=== PATIENT | male | born 1960 | race Caucasian/White ===

== ENCOUNTER → 2016-07-09 | Outpatient (CLI) | payer OTHER ==
[~2016-07-09] MED LIST: ASPEC325 PO; CITA40TA4 PO; ELET40TA PO; GLIM4TAB2 PO; LISI-788 PO; LISI20TA3 PO; METF500T5 PO; MULT-513 PO; PROP80CA PO; SIMV20TA5 PO
[2016-07-09 09:41] LABS: HEMATOCRIT 42.8 % (42-52); MEAN CELL VOLUME 90.5 fL (80-100); MEAN CORPUSCULAR HEMOGLOBIN 33.8 pg (25-34); MEAN CORPUSCULAR HGB CONC 37.4 g/dl (32-36); MEAN PLATELET VOLUME 11.6 fL (7.4-10.4); PLATELET COUNT 134 K/uL (130-400); RED BLOOD COUNT 4.73 M/uL (4.7-6.1); WHITE BLOOD COUNT 5.67 K/uL (4.8-10.8)
[2016-07-09 09:52] LABS: ESTIMATED AVERAGE GLUCOSE 177 mg/dl; HA1C FLAG Normal (Normal)
[2016-07-09 09:58] LABS: ALT/SGPT 33 U/L (12-78); BLOOD UREA NITROGEN 12 mg/dl (7-18); BUN/CREATININE RATIO 13.5 (10-20); CARBON DIOXIDE 24 mmol/L (21-32); CHLORIDE 104 mmol/L (98-107); CHOLESTEROL 196 mg/dl (0-200); CREATININE 0.88 mg/dl (0.60-1.40); GLUCOSE 227 mg/dl (70-99); POTASSIUM 4.1 mmol/L (3.5-5.1); SODIUM 139 mmol/L (136-145); TRIGLYCERIDES 236 mg/dl (0-150); VERY LOW DENSITY LIPOPROT CALC 47 mg/dl
[2016-07-09 10:18] LABS: ALKALINE PHOSPHATASE 62 U/L (45-117); AST/SGOT 20 U/L (15-37); CHOLESTEROL/HDL RATIO 6.1; HDL CHOLESTEROL 32 mg/dl; LDL CHOLESTEROL CALCULATED 117 mg/dl
== END | disposition home or self-care (01) ==
LOC: C.LAB 07:50
PROVIDERS: ATTEND Internal Medicine Geriatric Medicine
DX: I10 Essential (primary) hypertension (principal); G47.30 Sleep apnea, unspecified; K76.0 Fatty (change of) liver, not elsewhere classified; E78.5 Hyperlipidemia, unspecified; G43.909 Migraine, unspecified, not intractable, without status migrainosus; Z72.0 Tobacco use; E11.9 Type 2 diabetes mellitus without complications

== ENCOUNTER → 2017-05-09 | Outpatient (CLI) | payer OTHER ==
[2017-05-09 10:16] LABS: HEMOGLOBIN A1C 7.4 % (4.5-5.6)
[2017-05-09 11:22] LABS: ALBUMIN 3.7 gm/dl (3.4-5.0); ALT/SGPT 38 U/L (12-78); AST/SGOT 20 U/L (15-37); BLOOD UREA NITROGEN 18 mg/dl (7-18); CALCIUM 9.1 mg/dl (8.5-10.1); CARBON DIOXIDE 25 mmol/L (21-32); CREATININE 0.95 mg/dl (0.60-1.40); GLUCOSE 185 mg/dl (70-99); POTASSIUM 3.9 mmol/L (3.5-5.1); SODIUM 135 mmol/L (136-145)
[2017-05-09 11:26] LABS: ALKALINE PHOSPHATASE 67 U/L (45-117); CHOLESTEROL 153 mg/dl (0-200); LDL CHOLESTEROL CALCULATED 80 mg/dl; TOTAL PROTEIN 7.3 gm/dl (6.4-8.2)
== END | disposition home or self-care (01) ==
LOC: C.LAB 07:40
PROVIDERS: ATTEND Internal Medicine Geriatric Medicine
DX: Z00.00 Encounter for general adult medical examination without abnormal findings (principal); K76.0 Fatty (change of) liver, not elsewhere classified; E11.9 Type 2 diabetes mellitus without complications; E78.5 Hyperlipidemia, unspecified; Z68.38 Body mass index [BMI] 38.0-38.9, adult; F32.9 Major depressive disorder, single episode, unspecified

== ENCOUNTER 2024-07-03 16:45 | Inpatient (IN) ==
--- NOTE | 2024-07-03 17:43 | XRay Report ---
EXAM: Radiograph of the Chest 1 View INDICATION: Stroke alert TECHNIQUE: Frontal view of the chest. COMPARISON: No relevant prior studies available. FINDINGS: Lungs and pleural spaces: Minimal linear scar atelectasis in the left lung base. No consolidation or pulmonary edema. No pleural effusion or pneumothorax. Heart: Shape and configuration within normal limits allowing for technique. Mediastinum: Normal contour. Bones/joints: Old left clavicle fracture. No acute osseous abnormality. Soft tissues: No abnormality noted. No radiopaque foreign body noted. Upper abdomen: No abnormality noted. IMPRESSION: No acute cardiopulmonary disease. ACT 112: N/A Electronically signed by Essence Osman 07-03-2024 5:43 PM
[2024-07-03 17:54] LABS: Hematocrit (blood only) 48.1 % (42.0-52.0); Hemoglobin 17.7 g/dl (14.0-18.0); Mean Corpuscular Hemoglobin 32.1 pg (25.0-34.0); Mean Corpuscular Hgb Conc 36.8 g/dL (32.0-36.0); Mean Corpuscular Volume 87.1 fL (80.0-100.0); Mean Platelet Volume 10.9 fL (9.4-12.4); Platelet Count 196 K/uL (130-400); RDW Coefficient of Variation 11.8 % (11.5-14.5); RDW Standard Deviation 37.3 fL (36.4-46.3); Red Blood Count 5.52 M/uL (4.70-6.10); White Blood Count 6.36 K/ul (4.8-10.8)
[2024-07-03 18:23] LABS: Albumin Level 4.4 gm/dl (3.4-5.0); Calcium 10.4 mg/dl (8.6-10.3); Magnesium 1.8 mg/dl (1.7-2.4); Potassium 3.9 mmol/L (3.5-5.1)
[2024-07-03 18:27] LABS: Albumin Globulin Ratio 1.3 (0.9-2); BUN Creatinine Ratio 16.1 (10-20); Creatinine Clr Calc Pharmacy 111.9 ml/min; Globulin 3.4 gm/dl (2.5-4.0); Total Protein 7.8 gm/dl (6.0-8.3)
[2024-07-03 18:31] LABS: INR 0.9 (0.9-1.1); Partial Thromboplastin Time 27 Seconds (21-31); Prothrombin Time 10.3 Seconds (9.0-12.0)
[2024-07-03] MEDS: OPTIRAY 320 125ml IV ONE (18:42)
--- NOTE | 2024-07-03 19:24 | CT Scan Report ---
HISTORY: Stroke TECHNIQUE: CT angiography of the head and the neck was performed. Coronal and sagittal reformats were created. IV CONTRAST: 100 mL of OMNIPAQUE 300 COMPARISON: MRI of the brain August 10, 2020 FINDINGS: CTA HEAD: Stenotic/occlusive disease: The right FILAMENT WELDER is not traced from in the P4 segment and is likely occluded distally Aneurysm: None Vascular malformation: None NONVASCULAR: Brain parenchyma: There is a new ill-defined transcortical hypodensity in the right occipital lobe since the previous MRI from August 10, 2020, which may represent a subacute infarction. Unchanged encephalomalacia and gliosis in the right cerebral hemisphere representing old infarct Chronic white matter ischemic changes. Extra-axial space: Unremarkable Ventricular system: Unremarkable Additional comments: None CTA NECK: Right carotid: No hemodynamically significant stenosis. Left carotid: No hemodynamically significant stenosis. Vertebrobasilar system: No hemodynamically significant stenosis. Aortic arch and subclavian arteries: No hemodynamically significant stenosis. Nonvascular structures: Enlarged thyroid with multiple subcentimeter nodules. Stenosis ranges are derived using NASCET criteria. IMPRESSION: New ill-defined transcortical hypodensity in the right occipital lobe since the previous MRI from August 10, 2020, which may represent a subacute infarction. No large vessel occlusion The right FILAMENT WELDER is not traced from in the P4 segment and is likely occluded distally Enlarged thyroid with multiple subcentimeter nodules. Recommend further evaluation with ultrasound when clinically able Notification to clinician of alert: [facility] was notified about above findings by phone on July 03, 2024 at 7:20 PM by Christian Navarro MD. Readback confirmation was obtained. Electronically signed by Christian Navarro 07-03-2024 7:24 PM
--- NOTE | 2024-07-03 19:24 | CT Scan Report ---
HISTORY: Stroke TECHNIQUE: CT angiography of the head and the neck was performed. Coronal and sagittal reformats were created. IV CONTRAST: 100 mL of OMNIPAQUE 300 COMPARISON: MRI of the brain August 10, 2020 FINDINGS: CTA HEAD: Stenotic/occlusive disease: The right MAINTAINER OPERATOR is not traced from in the P4 segment and is likely occluded distally Aneurysm: None Vascular malformation: None NONVASCULAR: Brain parenchyma: There is a new ill-defined transcortical hypodensity in the right occipital lobe since the previous MRI from August 10, 2020, which may represent a subacute infarction. Unchanged encephalomalacia and gliosis in the right cerebral hemisphere representing old infarct Chronic white matter ischemic changes. Extra-axial space: Unremarkable Ventricular system: Unremarkable Additional comments: None CTA NECK: Right carotid: No hemodynamically significant stenosis. Left carotid: No hemodynamically significant stenosis. Vertebrobasilar system: No hemodynamically significant stenosis. Aortic arch and subclavian arteries: No hemodynamically significant stenosis. Nonvascular structures: Enlarged thyroid with multiple subcentimeter nodules. Stenosis ranges are derived using NASCET criteria. IMPRESSION: New ill-defined transcortical hypodensity in the right occipital lobe since the previous MRI from August 10, 2020, which may represent a subacute infarction. No large vessel occlusion The right MAINTAINER OPERATOR is not traced from in the P4 segment and is likely occluded distally Enlarged thyroid with multiple subcentimeter nodules. Recommend further evaluation with ultrasound when clinically able Notification to clinician of alert: [facility] was notified about above findings by phone on July 03, 2024 at 7:20 PM by Christian Navarro MD. Readback confirmation was obtained. Electronically signed by Christian Navarro 07-03-2024 7:24 PM
--- NOTE | 2024-07-03 19:45 | History & Physical Report ---
Date of Service July 03, 2024 Assessment & Plan (1) CVA (cerebral vascular accident): (2) Visual disturbance: (3) T2DM (type 2 diabetes mellitus): (4) Thyroid nodule: Plan Patient is a 64-year-old male with a past medical history of type II DM on insulin, hyperlipidemia, hypertension, MDD, history of cerebellar stroke at age 17. He presented to the ED after referral by PCP for left eye visual disturbance. The symptoms have been going on since Saturday so stroke alert was not called. He is being admitted for stroke workup after right occipital lobe subacute infarct found on head and neck CTA. #subacute right occipital lobe infarct/visual changes Patient presents with left eye auras/rings, denies diplopia or blurry vision Head/Neck CTA Showed new ill-defined transcortical hypodensity in right occipital lobe (subacute infarct), right HOME HEALTH OCCUPATIONAL THERAPIST likely occluded distally No echo on file no tele stroke recommendations as no stroke alert called due to sx for 5 days stroke without TNK order set - active ROM, Q4H neuro checks, pt/ot evals, speech eval continue ASA 81mg - additional 243 mg ordered on admission start Atorvastatin 40 mg daily - adjust prn with lipid panel ordered - recheck LFTs in 2 weeks - lipid panel 06/04/24 - triglyceride 272, total c 226, ldl 139, hdl 33 - defer repeat lipid panel Allow for permissive hypertension with goal parameters 220/110 - hold amlodipine, lisinopril, and HCTZ Telemetry monitoring MRI and echo with bubble study ordered A1C with AM labs - recent 10.1 retinal scanner and visual acuity assessment ordered #T2DM hold Trulicity continue home glargine 25 U HS Loose SSI, CF 30, defer carb ratio A1C with AM labs - 10.1 on 06/04/24 #thyroid nodules incidental finding on neck CTA - Enlarged thyroid with multiple subcentimeter nodules TSH ordered can consider thyroid antibody panel after TSH resulted follow-up with PCP and consider ultrasound in outpatient setting Chronic stable diagnoses: HTN - hold amlodipine, HCTZ, lisinopril with permissive HTN GERD - continue famotidine BPH - continue tamsulosin MDD - continue amitriptyline TARAS - does not use home CPAP allergies - saline spray prn VTE ppx: SCDs, defer chemical ppx with CVA above Diet: t2dm, passed dysphagia screen Dispo: med/tele Admission and Anticipated Discharge Date Admission Date: 07/03/24 History of Present Illness Chief Complaint: visual disturbance Primary Care Provider: Jose Maria Vanessa DO Patient is a 64-year-old male with a past medical history of type II DM on insulin, hyperlipidemia, hypertension, MDD, history of cerebellar stroke at age 17. He presented to the ED after referral by PCP for left eye visual disturbance. The symptoms have been going on since Saturday so stroke alert was not called. He is being admitted for stroke workup after right occipital lobe subacute infarct found on head and neck CTA. Patient seen at bedside with his present. He stated on Saturday he developed what he thought was a migraine and left eye visual changes. He stated the visual changes are like his auras that he typically gets with migraines, he is seeing rings but states it is difficult to explain. The vision changes have been persistent since Saturday which is why he presented to the ED. He does have a history of migraines with visual auras however typically do not last this long. He stated his bone around his left eye also has hurt since Saturday and appears puffy to him however he gets chronic sinusitis and has had rhinorrhea. The puffiness has since resolved. He denies blurry vision or diplopia. He denies any other strokelike symptoms, no dizziness, lightheadedness, facial droop, slurred speech, extremity numbness or tingling, facial numbness or tingling. He stated he does have a history of a stroke around age 17, he denies any family history of strokes however stated he does have strong family history of heart disease. 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 Patient denies dizziness, lightheadedness, sore throat, cough, dyspnea, chest pain, numbness, tingling, ambulatory dysfunction. He stated he typically has dry sinuses and uses saline spray at home, ordered on admission. He stated he does chew tobacco, he denies any smoking history however his smokes so he has exposure to secondhand smoke. he denies any chronic alcohol use. He stated he does have a CPAP for sleep apnea however has not used it in many months. He got his morning medications today however did not get his evening medications. He wishes to be full code. Allergies Allergy/AdvReac Type Severity Reaction Status Date / Time metformin AdvReac Intermediate Diarrhea Verified 07/03/24 15:15 oxytetracycline AdvReac Unknown unknown as Verified 07/03/24 15:15 [From Terramycin] a child Home Medications Medication Instructions Recorded Confirmed Type multivitamin (Multiple Vitamins 1 tab PO QAM 01/28/19 07/03/24 History tablet) CPAP Machine #1 ea 05/04/20 07/03/24 Rx magnesium citrate 100 mg tablet 200 mg PO DAILY PRN Constipation 08/01/20 07/03/24 History aspirin 81 mg tablet,delayed 81 mg PO QAM 07/03/21 07/03/24 History release blood sugar diagnostic (OneTouch #100 ea 02/21/23 07/03/24 Rx Verio test strips) amitriptyline 25 mg tablet 25 mg PO .qhs 01/09/24 07/03/24 History dulaglutide 4.5 mg/0.5 mL 4.5 mg (0.5 mL) subcut .once 01/09/24 07/03/24 Rx subcutaneous pen injector weekly #2 mL tamsulosin 0.4 mg capsule 0.8 mg (2 x 0.4 mg) PO HS #180 caps 03/25/24 07/03/24 Rx lancets (Accu-Chek Softclix #100 ea 04/24/24 07/03/24 Rx Lancets) famotidine 20 mg tablet 20 mg PO DAILY 06/04/24 07/03/24 History pen needle, diabetic 31 gauge x #100 ea 06/04/24 07/03/24 Rx 3/16" (Comfort EZ Pen [place]) amlodipine 10 mg tablet 5 mg (1/2 x 10 mg) PO QAM #90 tabs 07/04/24 07/03/24 Rx atorvastatin 40 mg tablet 40 mg PO QAM #30 tabs 07/04/24 Rx clopidogrel 75 mg tablet 75 mg PO QAM #30 tabs 07/04/24 Rx insulin glargine 100 unit/mL (3 30 unit (0.3 mL) subcut HS #15 mL 07/04/24 07/03/24 Rx mL) subcutaneous pen (Lantus Solostar U-100 Insulin) lisinopril 40 mg tablet 20 mg (1/2 x 40 mg) PO QAM #90 tabs 07/04/24 07/03/24 Rx Past Med/Surg History Problem List (Updated 07/03/24 @ 20:50 by Susanne Duarte PA-C) Thyroid nodule T2DM (type 2 diabetes mellitus) Visual disturbance CVA (cerebral vascular accident) Obesity (BMI 30-39.9) MDD (major depressive disorder), recurrent episode, moderate Diabetic neuropathy associated with type 2 diabetes mellitus HTN (hypertension) (Chronic) DM (diabetes mellitus), secondary uncontrolled penitentiary (current) use of insulin (Acute) Dyslipidemia (Acute) Severe obstructive sleep apnea (Acute) cpap Nocturnal hypoxemia Hepatic steatosis (Acute) US not completed by Patient Memory deficit Migraine with aura Urinary frequency (Acute) Renal lesion (Acute) ct 2014, F/U recommneded? Nocturia (Acute) Medical History (Updated 07/03/24 @ 20:50 by Susanne Duarte PA-C) Diabetes type 2, controlled Stroke with migraine ~1976. presented as a severe migraine treated with lumbar puncture. found incidentally during a brain ct for follow up on consistent migraines. follows with [facility] neuro. Asthma as a child History of COVID-19 05/27/2020 tested at [facility], flu like symptoms. no hospitalization. Chronic sinusitis Depression Smokeless tobacco use Migraine Surgical History H/O umbilical hernia repair (07/06/21) Open Repair Incarcerated Umbilical Hernia with Ventralex Mesh - Tin Ding MD, FACS 07/06/2021 History of carpal tunnel surgery right History of sinus surgery History of colonoscopy Family History Brother Diabetes Esophageal cancer Father Esophageal cancer Grandfather (Paternal) Prostate cancer Mother Diabetes Heart disease Other Coronary heart disease Hypertension Denies family history of Ovarian cancer Myocardial infarction Breast cancer Lung cancer Colorectal cancer Stroke Social History Smoking Status: Never smoker Tobacco Type: Smokeless Tobacco (Dip or Chew) Second Hand Exposure: Yes; Do You Dip or Chew Tobacco: Yes; Hx Alcohol Use: No Hx Substance Use: No Preferred Language: Ghanaian Communication Ability: Effective Visual Impairment: Limited Hearing Ability: Normal Machine Cloth Examiner Required: No Beliefs That Will Affect Care: None marital status: Current Living Situation: Family current occupational status: employed current occupation: [employer] How many Children do You have: 2 Feels Safe at Home: Yes Childhood Exposure to Second-Hand Smoke: Yes Diet: diabetic caffeine: Yes Dental Care, Regularly: No Physical Activity Frequency: 1-2 Times per Week Seatbelt Use: always Sunscreen Use: No Assistive Devices: Glasses Review of Systems Review of Systems: see HPI Physical Exam Physical Exam: The patient is awake, alert and oriented 3, well developed and well nourished, normocephalic and atraumatic, in no acute distress. Non-toxic appearing. HEENT- EOMI, mucous membranes moist. Hearing grossly intact. Heart-normal S1 and S2. No murmurs, rubs or gallops. Lungs-clear bilaterally, no respiratory distress, no accessory muscle use. Abdomen-normal bowel sounds and soft. No ascites noted. Non-tender. Extremities- no clubbing, cyanosis, or edema. Rheumatologic-normal range of motion. Psychiatric-normal affect. Eyes: PERRL, conjunctivae normal, anicteric sclerae Musculoskeletal: no cyanosis or clubbing, extremities motor strength 5/5 Neurologic: PERRL, EOMI, accommodation nl, no face palsy, no dysarthria CN's II-XI intact bilaterally; no focal motor deficits and not confused Coordination: normal avvbfo-af-sode test Results & Data Results & Data Vital Signs (Past 12 Hours) Vital Signs Temp Pulse Pulse Resp BP BP Pulse Ox 07/03/24 19:27 91 H 16 163/109 H 94 07/03/24 18:20 93 H 07/03/24 17:57 96 07/03/24 17:56 36.8 C 93 H 18 160/89 H 99 07/03/24 16:49 36.7 C 95 H 18 178/95 H 94 O2 Del Method 07/03/24 19:27 Room Air 07/03/24 18:20 07/03/24 17:57 Room Air 07/03/24 17:56 Room Air 07/03/24 16:49 Room Air Laboratory Results Reviewed CBC, PT/INR, CMP, mag Diagnostic Findings reviewed cxr, head cta, neck cta Medications Administered ed - none admission - 243 mg ASA ECG Additional Comments: NSR rate 99 qtc 462 Code Status & VTE Plan Code Status full code VTE Prophylaxis Plan VTE Prophylaxis will be ordered: Yes Supervising Physician Co-Signing Physician Notes Attending addendum: I have physically seen this patient, have supervised the AUDRA's activities, and agree with the H&P unless as otherwise noted. Assessment and Plan: The patient is a 64-year-old male with past medical history including of his mellitus type II on insulin, hyperlipidemia, hypertension, MDD, and history of cerebellar stroke in age 17. He presents to the ED after referral by PCP for left eye visual disturbance. Symptomatology has been going on since Saturday, 4 days ago. Workup in the emergency department included a CT scan of head which showed a right occipital lobe subacute infarct. CTA head and neck showed a right HOME HEALTH OCCUPATIONAL THERAPIST likely noted distally. There were also multiple thyroid subcentimeter nodules. [facility]. #Subacute right occipital lobe infarct/visual changes- Patient presented with left eye auras/rings, denying diplopia or blurry vision CTA head and neck showed new ill-defined transcortical hypodensity in the right occipital lobe suggestive of subacute infarct, right HOME HEALTH OCCUPATIONAL THERAPIST likely occluded distally. Stroke without TNK order set Consult PT/OT/speech/neurology Patient takes aspirin 81 mg daily, recommend an additional 243 mg now, and then continue 81 mg daily Starting atorvastatin 40 mg daily Check a fasting blood panel and hemoglobin A1c Order MRI of brain without contrast Order complete echocardiogram with bubble study Check a fasting lipid panel and hemoglobin A1c Diabetes mellitus-holding Trulicity Continue glargine 25 units subcu at bedtime Patient Accu-Cheks with NovoLog SSI as noted Multiple thyroid nodules- Noted to 7 cm Check a TSH with reflex T4 Would likely benefit from a thyroid ultrasound in the outpatient setting Consideration for thyroid antibody testing as well Remaining orders and notations as noted PG Care Time/CCT Total # of Minutes Spent Total Time Spent with Patient: Total time spent is greater than 50% in coordination of care (as documented) at patient's floor/unit and/or counseling patient: Coding Level of Care Code 63673 INT INP/OBS CARE 3/75MIN Diagnoses CVA (cerebral vascular accident) I63.9 Visual disturbance H53.9 T2DM (type 2 diabetes mellitus) E11.9 Thyroid nodule E04.1
[2024-07-03] MEDS: ASPIRIN 81 MG ECTAB PO STA (20:58)
[2024-07-03 21:53] LABS: Thyroid Stimulating Hormone 2.022 uIu/ml (0.300-4.500)
[2024-07-03] MEDS ORDERED: GLUCOSE 10 TAB/TUBE PO PRN (22:30)
[2024-07-03] MEDS ORDERED: ACETAMINOPHEN 325 MG TAB PO PRN (22:30)
[2024-07-03] MEDS ORDERED: DEXTROSE 50% 50 ML SYRINGE IV PRN (22:30)
[2024-07-03] MEDS ORDERED: GLUCOSE 40% GEL 15 GM TUBE PO PRN (22:30)
[2024-07-03] MEDS ORDERED: GLUCAGON FOR INJ 1 MG VIAL SQ PRN (22:30)
[2024-07-03] MEDS ORDERED: CARBOHYDRATES FOR HYPOGLYCEMIA PO PRN (22:30)
[2024-07-03] MEDS ORDERED: PHARMACIST DISCHARGE MED REC CONSULT PRN (22:30)
[2024-07-03] MEDS ORDERED: ONDANSETRON INJ 2 MG/ML 2 ML VIAL IV PRN (22:30)
[2024-07-03] MEDS ORDERED: SODIUM CHLORIDE 0.65% NA SOLN 45 ML (OCEAN) PRN (22:30)
[2024-07-03] MEDS ORDERED: DOCUSATE SODIUM 100 MG CAP PO PRN (22:30)
--- NOTE | 2024-07-03 22:40 | Magnetic Resonance Report ---
Exam(s): MRI HEAD Without Contrast EXAM: MR Head Without Intravenous Contrast CLINICAL HISTORY: Reason for exam: right occipital lobe infarct. TECHNIQUE: Magnetic resonance images of the head/brain without intravenous contrast in multiple planes. COMPARISON: MRI 08/10/2020. CTA head 07/03/2024 FINDINGS: Brain: Acute infarct involving the right occipital lobe. Chronic infarcts of the right cerebellum. No intracranial hemorrhage. No mass- effect or cerebral edema. Ventricles: Unremarkable. No ventriculomegaly. Bones/joints: Unremarkable. No acute fracture. Sinuses: Unremarkable as visualized. No acute sinusitis. Mastoid air cells: Unremarkable as visualized. No mastoid effusion. Orbits: Unremarkable as visualized. IMPRESSION: Acute infarct involving the right occipital lobe. No hemorrhagic conversion. Electronically signed by: Rohith South MD 07/03/24 22:39 PM
[2024-07-03] MEDS: TAMSULOSIN HCL 0.4 MG CAP PO SCH (23:12)
[2024-07-03] MEDS: AMITRIPTYLINE HCL 25 MG TAB PO SCH (23:12)
[2024-07-03] MEDS: LANTUS PER UNIT CHARGE SQ SCH (23:13)
[2024-07-03] MEDS: INSULIN ASPART PER UNIT CHARGE SC SCH (23:13)
--- NOTE | 2024-07-04 02:03 | Emergency Department Note ---
ED Provider Note CHIEF COMPLAINT: Visual changes HISTORY OF PRESENT ILLNESS: This 64-year-old male patient past medical history of type 2 diabetes, CVA, depression, diabetic neuropathy, hypertension obstructive sleep apnea, hyperlipidemia, migraine headaches and memory deficits presents to the emergency department with complaints of visual changes in the left eye over the last 4 days. Patient states symptoms began with some pain below the right eye, then shortly thereafter patient recognized left eye "shimmering. He does believe his vision has improved although it is not cleared totally. Patient does have a remote history of stroke in the left cerebellum. He denies taking any blood thinners. He denies any injury to the head. REVIEW OF SYSTEMS: A review of systems was performed with positives and pertinent negatives listed in the history of present illness. 10 systems were reviewed and are otherwise negative. ALLERGIES: see below MEDICATIONS: see below PMH: see below SOCIAL HISTORY: see below DDx: CVA, intracranial hemorrhage, intracranial mass, seizure, retinal detachment, glaucoma, central retinal artery occlusion among others. PHYSICAL EXAM: Vital signs reviewed. General: Well-appearing 64-year-old male, in no significant distress. HEENT: No scleral icterus, PERRLA, neck supple. Moist mucous membranes Cardiovascular: Regular rate and rhythm, no extra sounds. Pulmonary: Clear to auscultation bilaterally, normal work of breathing. Abdomen: Soft, nontender, nondistended, positive bowel sounds. Musculoskeletal: Atraumatic, no peripheral edema. Neurologic: Patient awake alert and oriented x 3, speech is clear. Intact [id number], negative pronator drift, minimal horizontal nystagmus. Equal strength in all 4 extremities. Skin: Warm, dry, no rash EMERGENCY DEPARTMENT COURSE/MDM: [] MONITORING: An order for cardiac monitoring was placed and the patient is noted to be in a [] at [] beats per minute. RADIOLOGY: Head CT/CTA, neck CTA: IMPRESSION: New ill-defined transcortical hypodensity in the right occipital lobe since the previous MRI from August 10, 2020, which may represent a subacute infarction. No large vessel occlusion The right CAPABILITY LEAD is not traced from in the P4 segment and is likely occluded distally Enlarged thyroid with multiple subcentimeter nodules. Recommend further evaluation with ultrasound when clinically able Chest x-ray to my interpretation reveals no evidence of focal lung consolidation or failure. EKG: Normal sinus rhythm at 99 bpm. Left axis deviation, previous inferior infarct. QTc of 462. No PVC, no PAC. DISPOSITION: Admission Past Med/Surg History Problem List (Updated 07/03/24 @ 20:50 by Susanne Duarte PA-C) Thyroid nodule T2DM (type 2 diabetes mellitus) Visual disturbance CVA (cerebral vascular accident) Obesity (BMI 30-39.9) MDD (major depressive disorder), recurrent episode, moderate Diabetic neuropathy associated with type 2 diabetes mellitus HTN (hypertension) (Chronic) DM (diabetes mellitus), secondary uncontrolled halfway (current) use of insulin (Acute) Dyslipidemia (Acute) Severe obstructive sleep apnea (Acute) cpap Nocturnal hypoxemia Hepatic steatosis (Acute) US not completed by Patient Memory deficit Migraine with aura Urinary frequency (Acute) Renal lesion (Acute) ct 2014, F/U recommneded? Nocturia (Acute) Medical History (Updated 07/03/24 @ 20:50 by Susanne Duarte PA-C) Diabetes type 2, controlled Stroke with migraine ~1976. presented as a severe migraine treated with lumbar puncture. found incidentally during a brain ct for follow up on consistent migraines. follows with [place] neuro. Asthma as a child History of COVID-19 05/27/2020 tested at [place], flu like symptoms. no hospitalization. Chronic sinusitis Depression Smokeless tobacco use Migraine Surgical History H/O umbilical hernia repair (07/06/21) Open Repair Incarcerated Umbilical Hernia with Ventralex Mesh - Tin Ding MD, FACS 07/06/2021 History of carpal tunnel surgery right History of sinus surgery History of colonoscopy Family History Brother Diabetes Esophageal cancer Father Esophageal cancer Grandfather (Paternal) Prostate cancer Mother Diabetes Heart disease Other Coronary heart disease Hypertension Denies family history of Ovarian cancer Myocardial infarction Breast cancer Lung cancer Colorectal cancer Stroke Social History Smoking Status: Never smoker Tobacco Type: Smokeless Tobacco (Dip or Chew) Second Hand Exposure: Yes; Do You Dip or Chew Tobacco: Yes; Tobacco Cessation Education Requested by Patient: No Hx Alcohol Use: No Hx Substance Use: No Preferred Language: Persian Communication Ability: Effective Visual Impairment: Limited Hearing Ability: Normal Communications Superintendent Required: No Beliefs That Will Affect Care: None marital status: Current Living Situation: Family current occupational status: employed 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 How many Children do You have: 2 Other Information That Helps Us Care for You: No Feels Safe at Home: Yes Safety Concerns: Feels Safe At This Time Childhood Exposure to Second-Hand Smoke: Yes Diet: diabetic caffeine: Yes Dental Care, Regularly: No Physical Activity Frequency: 1-2 Times per Week Seatbelt Use: always Sunscreen Use: No Assistive Devices: Glasses Allergies Allergies Allergy/AdvReac Type Severity Reaction Status Date / Time metformin AdvReac Intermediate Diarrhea Verified 07/03/24 15:15 oxytetracycline AdvReac Unknown unknown as Verified 07/03/24 15:15 [From Terramycin] a child Home Meds Home Medications Medication Instructions Recorded Confirmed multivitamin (Multiple Vitamins 1 tab PO QAM 01/28/19 07/03/24 tablet) magnesium citrate 100 mg tablet 200 mg PO DAILY PRN Constipation 08/01/20 07/03/24 aspirin 81 mg tablet,delayed 81 mg PO QAM 07/03/21 07/03/24 release amitriptyline 25 mg tablet 25 mg PO .qhs 01/09/24 07/03/24 famotidine 20 mg tablet 20 mg PO DAILY 06/04/24 07/03/24 Previous Rx's Medication Instructions Recorded CPAP Machine #1 ea 05/04/20 blood sugar diagnostic (OneTouch #100 ea 02/21/23 Verio test strips) lisinopril 40 mg tablet 40 mg PO QAM #90 tabs 08/21/23 amlodipine 10 mg tablet 10 mg PO QAM #90 tabs 10/10/23 dulaglutide 4.5 mg/0.5 mL 4.5 mg (0.5 mL) subcut .once 01/09/24 subcutaneous pen injector weekly #2 mL tamsulosin 0.4 mg capsule 0.8 mg (2 x 0.4 mg) PO HS #180 caps 03/25/24 lancets (Accu-Chek Softclix #100 ea 04/24/24 Lancets) hydrochlorothiazide 12.5 mg tablet 12.5 mg PO DAILY #90 tabs 06/04/24 pen needle, diabetic 31 gauge x #100 ea 06/04/24/16" (Comfort EZ Pen [place]) insulin glargine 100 unit/mL (3 25 unit (0.25 mL) subcut HS #15 mL 07/01/24 mL) subcutaneous pen (Lantus Solostar U-100 Insulin) Results & Data (ED) Vital Signs Vital Signs - 24 hr 07/03/24 16:49 07/03/24 17:56 07/03/24 17:57 Temperature 36.7 C 36.8 C Temperature Source Temporal Artery Scan Oral Pulse Rate 95 H Pulse Rate [Apical] 93 H Pulse Rhythm [Apical] Regular Pulse Strength [Apical] Normal Respiratory Rate 18 18 Respiratory Effort / Characteristics Non-Labored Spontaneous Non-Labored Spontaneous Respiratory Depth Normal Normal Respiratory Pattern Regular Regular Blood Pressure 178/95 H Blood Pressure [Left Arm] 160/89 H Blood Pressure Mean 122 Blood Pressure Mean [Left Arm] 112 Pulse Oximetry 94 99 96 Oxygen Delivery Method Room Air Room Air Room Air Sepsis Recent Fever Within 48 Hours No Sepsis New/Unexplained Change in Mental Status No Sepsis Action Taken by Nursing No Action Required 07/03/24 18:20 07/03/24 19:27 Temperature Temperature Source Pulse Rate 93 H Pulse Rate [Apical] 91 H Pulse Rhythm [Apical] Regular Pulse Strength [Apical] Normal Respiratory Rate 16 Respiratory Effort / Characteristics Non-Labored Spontaneous Respiratory Depth Normal Respiratory Pattern Blood Pressure Blood Pressure [Left Arm] 163/109 H Blood Pressure Mean Blood Pressure Mean [Left Arm] 127 Pulse Oximetry 94 Oxygen Delivery Method Room Air Sepsis Recent Fever Within 48 Hours Sepsis New/Unexplained Change in Mental Status Sepsis Action Taken by Retirement Medications Current Medication List: was personally reviewed by me Laboratory Data Attestation: I reviewed the patient's lab results. 07/03/24 17:38 07/03/24 17:38 Lab Results 07/03/24 Range/Units 17:38 WBC 6.36 (4.8-10.8) K/ul RBC 5.52 (4.70-6.10) M/uL Hgb 17.7 (14.0-18.0) g/dl Hct 48.1 (42.0-52.0) % MCV 87.1 (80.0-100.0) fL MCH 32.1 (25.0-34.0) pg MCHC 36.8 H (32.0-36.0) g/dL RDW Std Deviation 37.3 (36.4-46.3) fL RDW Coeff of Lilly 11.8 (11.5-14.5) % Plt Count 196 (130-400) K/uL MPV 10.9 (9.4-12.4) fL PT 10.3 (9.0-12.0) Seconds INR 0.9 (0.9-1.1) APTT 27 (21-31) Seconds PTT Ratio 1.0 Sodium 137 (136-145) mmol/L Potassium 3.9 (3.5-5.1) mmol/L Chloride 99 (98-107) mmol/L Carbon Dioxide 28 (21-32) mmol/L Anion Gap 10 (3-11) BUN 15 (6-23) mg/dl Creatinine 0.93 (0.6-1.4) mg/dl Est Cr Clr Drug Dosing 111.9 ml/min eGFR 91.69 BUN/Creatinine Ratio 16.1 (10-20) Glucose 204 H (70-99(Fasting)) mg/dl Calcium 10.4 H (8.6-10.3) mg/dl Magnesium 1.8 (1.7-2.4) mg/dl Total Bilirubin 1.0 (0.2-1.0) mg/dl AST 21 (13-39) U/L ALT 24 (7-52) U/L Alkaline Phosphatase 71 (34-104) U/L Total Protein 7.8 (6.0-8.3) gm/dl Albumin 4.4 (3.4-5.0) gm/dl Globulin 3.4 (2.5-4.0) gm/dl Albumin/Globulin Ratio 1.3 (0.9-2) TSH 2.022 (0.300-4.500) uIu/ml Administered Medications Amitriptyline HCl (Amitriptyline Hcl 25 Mg Tab) 25 mg PO HS KAYLA Stop: 08/02/24 22:29 Last Admin: 07/03/24 23:12 Dose: 25 mg Documented By: MIKA Insulin Aspart (Insulin Aspart Per Unit Charge) 0 units SC ACHS KAYLA Stop: 08/02/24 22:29 Last Admin: 07/03/24 23:13 Dose: 1 units Documented By: MIKA Co-signed By: GERA Insulin Glargine (Lantus Per Unit Charge) 25 units SQ HS KAYLA Stop: 08/02/24 22:29 Last Admin: 07/03/24 23:13 Dose: 25 units Documented By: MIKA Co-signed By: GERA Tamsulosin HCl (Tamsulosin Hcl 0.4 Mg Cap) 0.8 mg PO HS [facility] Stop: 08/02/24 22:29 Last Admin: 07/03/24 23:12 Dose: 0.8 mg Documented By: MIKA Discontinued Medications Aspirin (Aspirin 81 Mg Ectab) 243 mg PO NOW STA Stop: 07/03/24 20:24 Last Admin: 07/03/24 20:58 Dose: 243 mg Documented By: Moreno Ioversol (Optiray 320 125ml) 119 ml IV ONCE ONE Stop: 07/03/24 18:43 Last Admin: 07/03/24 18:42 Dose: 119 ml Documented By: ROSS Imaging Data Radiologist's Impression: Chest X-Ray 07/03/24 16:56 EXAM: Radiograph of the Chest 1 View INDICATION: Stroke alert TECHNIQUE: Frontal view of the chest. COMPARISON: No relevant prior studies available. FINDINGS: Lungs and pleural spaces: Minimal linear scar atelectasis in the left lung base. No consolidation or pulmonary edema. No pleural effusion or pneumothorax. Heart: Shape and configuration within normal limits allowing for technique. Mediastinum: Normal contour. Bones/joints: Old left clavicle fracture. No acute osseous abnormality. Soft tissues: No abnormality noted. No radiopaque foreign body noted. Upper abdomen: No abnormality noted. IMPRESSION: No acute cardiopulmonary disease. ACT 112: N/A Electronically signed by Essence Osman 07-03-2024 5:43 PM Head CTA 07/03/24 18:03 HISTORY: Stroke TECHNIQUE: CT angiography of the head and the neck was performed. Coronal and sagittal reformats were created. IV CONTRAST: 100 mL of OMNIPAQUE 300 COMPARISON: MRI of the brain August 10, 2020 FINDINGS: CTA HEAD: Stenotic/occlusive disease: The right CAPABILITY LEAD is not traced from in the P4 segment and is likely occluded distally Aneurysm: None Vascular malformation: None NONVASCULAR: Brain parenchyma: There is a new ill-defined transcortical hypodensity in the right occipital lobe since the previous MRI from August 10, 2020, which may represent a subacute infarction. Unchanged encephalomalacia and gliosis in the right cerebral hemisphere representing old infarct Chronic white matter ischemic changes. Extra-axial space: Unremarkable Ventricular system: Unremarkable Additional comments: None CTA NECK: Right carotid: No hemodynamically significant stenosis. Left carotid: No hemodynamically significant stenosis. Vertebrobasilar system: No hemodynamically significant stenosis. Aortic arch and subclavian arteries: No hemodynamically significant stenosis. Nonvascular structures: Enlarged thyroid with multiple subcentimeter nodules. Stenosis ranges are derived using NASCET criteria. IMPRESSION: New ill-defined transcortical hypodensity in the right occipital lobe since the previous MRI from August 10, 2020, which may represent a subacute infarction. No large vessel occlusion The right CAPABILITY LEAD is not traced from in the P4 segment and is likely occluded distally Enlarged thyroid with multiple subcentimeter nodules. Recommend further evaluation with ultrasound when clinically able Notification to clinician of alert: [facility] was notified about above findings by phone on July 03, 2024 at 7:20 PM by Christian Navarro MD. Readback confirmation was obtained. Electronically signed by Christian Navarro 07-03-2024 7:24 PM Neck CTA 07/03/24 18:03 HISTORY: Stroke TECHNIQUE: CT angiography of the head and the neck was performed. Coronal and sagittal reformats were created. IV CONTRAST: 100 mL of OMNIPAQUE 300 COMPARISON: MRI of the brain August 10, 2020 FINDINGS: CTA HEAD: Stenotic/occlusive disease: The right CAPABILITY LEAD is not traced from in the P4 segment and is likely occluded distally Aneurysm: None Vascular malformation: None NONVASCULAR: Brain parenchyma: There is a new ill-defined transcortical hypodensity in the right occipital lobe since the previous MRI from August 10, 2020, which may represent a subacute infarction. Unchanged encephalomalacia and gliosis in the right cerebral hemisphere representing old infarct Chronic white matter ischemic changes. Extra-axial space: Unremarkable Ventricular system: Unremarkable Additional comments: None CTA NECK: Right carotid: No hemodynamically significant stenosis. Left carotid: No hemodynamically significant stenosis. Vertebrobasilar system: No hemodynamically significant stenosis. Aortic arch and subclavian arteries: No hemodynamically significant stenosis. Nonvascular structures: Enlarged thyroid with multiple subcentimeter nodules. Stenosis ranges are derived using NASCET criteria. IMPRESSION: New ill-defined transcortical hypodensity in the right occipital lobe since the previous MRI from August 10, 2020, which may represent a subacute infarction. No large vessel occlusion The right CAPABILITY LEAD is not traced from in the P4 segment and is likely occluded distally Enlarged thyroid with multiple subcentimeter nodules. Recommend further evaluation with ultrasound when clinically able Notification to clinician of alert: [facility] ED was notified about above findings by phone on July 03, 2024 at 7:20 PM by Christian Navarro MD. Readback confirmation was obtained. Electronically signed by Christian Navarro 07-03-2024 7:24 PM Brain MRI 07/03/24 20:17 Exam(s): MRI HEAD Without Contrast EXAM: MR Head Without Intravenous Contrast CLINICAL HISTORY: Reason for exam: right occipital lobe infarct. TECHNIQUE: Magnetic resonance images of the head/brain without intravenous contrast in multiple planes. COMPARISON: MRI 08/10/2020. CTA head 07/03/2024 FINDINGS: Brain: Acute infarct involving the right occipital lobe. Chronic infarcts of the right cerebellum. No intracranial hemorrhage. No mass- effect or cerebral edema. Ventricles: Unremarkable. No ventriculomegaly. Bones/joints: Unremarkable. No acute fracture. Sinuses: Unremarkable as visualized. No acute sinusitis. Mastoid air cells: Unremarkable as visualized. No mastoid effusion. Orbits: Unremarkable as visualized. IMPRESSION: Acute infarct involving the right occipital lobe. No hemorrhagic conversion. Electronically signed by: Rohith South MD 07/03/24 22:39 PM Discharge Plan Visit Data Chief Complaint: Visual Disturbance Stated Complaint: VISION PROBLEMS ED Provider: Annie Horowitz Patient Disposition: Admitted As Inpatient Discharge Instructions Interventions: ED Discharge Assessment Last Done: 07/03/24 22:23
[2024-07-04 08:11] LABS: Basophils # (auto) 0.04 K/uL (0.00-0.20); Basophils % (auto) 0.8 %; Eosinophils # (auto) 0.16 K/uL (0.00-0.50); Hematocrit (blood only) 44.2 % (42.0-52.0); Hemoglobin 15.9 g/dl (14.0-18.0); Immature Granulocytes # (auto) 0.02 K/uL (0.01-0.20); Immature Granulocytes % (auto) 0.4 %; Lymphocytes % (auto) 39.4 %; Mean Corpuscular Hemoglobin 31.4 pg (25.0-34.0); Mean Corpuscular Volume 87.4 fL (80.0-100.0); Monocytes # (auto) 0.49 K/uL (0.11-0.59); Monocytes % (auto) 9.2 %; Neutrophils # (auto) 2.52 K/uL (1.40-6.50); Neutrophils % (auto) 47.2 %; Platelet Count 181 K/uL (130-400); RDW Coefficient of Variation 11.9 % (11.5-14.5); RDW Standard Deviation 38.3 fL (36.4-46.3); Red Blood Count 5.06 M/uL (4.70-6.10); White Blood Count 5.33 K/ul (4.8-10.8)
[2024-07-04] MEDS: ATORVASTATIN 40 MG TAB PO SCH (08:14)
[2024-07-04] MEDS: FAMOTIDINE 20 MG TAB PO SCH (08:14)
[2024-07-04] MEDS: ASPIRIN 81 MG ECTAB PO SCH (08:14)
[2024-07-04 08:26] LABS: Albumin Globulin Ratio 1.2 (0.9-2); Albumin Level 3.6 gm/dl (3.4-5.0); BUN Creatinine Ratio 14.9 (10-20); Bilirubin,Total 0.9 mg/dl (0.2-1.0); Calcium 8.8 mg/dl (8.6-10.3); Creatinine Clr Calc Pharmacy 108.4 ml/min; Globulin 2.9 gm/dl (2.5-4.0); Magnesium 1.8 mg/dl (1.7-2.4); Potassium 4.1 mmol/L (3.5-5.1); Total Protein 6.5 gm/dl (6.0-8.3)
[2024-07-04 09:53] LABS: Estimated Average Glucose 226 mg/dl; Hemoglobin A1C 9.5 % (4.5-5.6)
[2024-07-04] MEDS: CLOPIDOGREL BISULFATE 75 MG TAB PO ONE (10:18)
--- NOTE | 2024-07-04 10:33 | XCELERA ---
[id number]
--- NOTE | 2024-07-04 12:59 | Electrocardiogram Report ---
Test Reason : Blood Pressure : */* mmHG Vent. Rate : 99 BPM Atrial Rate : 99 BPM P-R Int : 168 ms QRS Dur : 94 ms QT Int : 360 ms P-R-T Axes : 45 -36 41 degrees QTcB Int : 462 ms Normal sinus rhythm Left axis deviation Inferior infarct , age undetermined Cannot rule out Anterior infarct , age undetermined Abnormal ECG When compared with ECG of 26-Jun-2021 11:30, QRS axis Shifted left Minimal criteria for Anterior infarct are now Present Confirmed by Bryce Pham ([id number]) on 07/04/2024 12:58:40 PM Referred By: Jose Maria Vanessa Confirmed By: Bryce Pham
[2024-07-04] MEDS: lisinopril 10 MG TAB PO STA (14:18)
[2024-07-04 15:31] VITALS: BP 149/81; PULSE 88; RESP 17; TEMP 97.9; O2SAT 95
[2024-07-04] MEDS ORDERED: STROKE PATIENT DISCHARGE STA (16:40)
--- NOTE | 2024-07-04 16:41 | Discharge Summary ---
Discharge Summary Date of Service July 04, 2024 Principal Dx & Hospital Course #1 = Principal Diagnosis (1) CVA (cerebral vascular accident): (2) Visual disturbance: (3) T2DM (type 2 diabetes mellitus): (4) Thyroid nodule: Plan Patient is a 64-year-old male with a past medical history of type II DM on insulin, hyperlipidemia, hypertension, MDD, history of cerebellar stroke at age 17. He presented to the ED after referral by PCP for left eye visual disturbance. The symptoms have been going on since Saturday so stroke alert was not called. He is being admitted for stroke workup after right occipital lobe subacute infarct found on head and neck CTA. 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 No echo on file no tele stroke recommendations as no stroke alert called due to sx for 5 days stroke without TNK order set - active ROM, Q4H neuro checks, pt/ot evals, speech eval continue ASA 81mg - additional 243 mg ordered on admission start Atorvastatin 40 mg daily - adjust prn with lipid panel ordered - recheck LFTs in 2 weeks - lipid panel 06/04/24 - triglyceride 272, total c 226, ldl 139, hdl 33 - defer repeat lipid panel Allow for permissive hypertension with goal parameters 220/110 - hold amlodipine, lisinopril, and HCTZ Telemetry monitoring MRI and echo with bubble study ordered A1C with AM labs - recent 10.1 retinal scanner and visual acuity assessment ordered #T2DM hold Trulicity continue home glargine 25 U HS Loose SSI, CF 30, defer carb ratio A1C with AM labs - 10.1 on 06/04/24 #thyroid nodules incidental finding on neck CTA - Enlarged thyroid with multiple subcentimeter nodules TSH ordered can consider thyroid antibody panel after TSH resulted follow-up with PCP and consider ultrasound in outpatient setting Chronic stable diagnoses: HTN - hold amlodipine, HCTZ, lisinopril with permissive HTN GERD - continue famotidine BPH - continue tamsulosin MDD - continue amitriptyline TARAS - does not use home CPAP allergies - saline spray prn VTE ppx: SCDs, defer chemical ppx with CVA above Diet: t2dm, passed dysphagia screen Dispo: med/tele Admission HPI Per Admitting Provider Patient is a 64-year-old male with a past medical history of type II DM on insulin, hyperlipidemia, hypertension, MDD, history of cerebellar stroke at age 17. He presented to the ED after referral by PCP for left eye visual disturbance. The symptoms have been going on since Saturday so stroke alert was not called. He is being admitted for stroke workup after right occipital lobe subacute infarct found on head and neck CTA. Patient seen at bedside with his present. He stated on Saturday he developed what he thought was a migraine and left eye visual changes. He stated the visual changes are like his auras that he typically gets with migraines, he is seeing rings but states it is difficult to explain. The vision changes have been persistent since Saturday which is why he presented to the ED. He does have a history of migraines with visual auras however typically do not last this long. He stated his bone around his left eye also has hurt since Saturday and appears puffy to him however he gets chronic sinusitis and has had rhinorrhea. The puffiness has since resolved. He denies blurry vision or diplopia. He denies any other strokelike symptoms, no dizziness, lightheadedness, facial droop, slurred speech, extremity numbness or tingling, facial numbness or tingling. He stated he does have a history of a stroke around age 17, he denies any family history of strokes however stated he does have strong family history of heart disease. 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 Patient denies dizziness, lightheadedness, sore throat, cough, dyspnea, chest pain, numbness, tingling, ambulatory dysfunction. He stated he typically has dry sinuses and uses saline spray at home, ordered on admission. He stated he does chew tobacco, he denies any smoking history however his smokes so he has exposure to secondhand smoke. he denies any chronic alcohol use. He stated he does have a CPAP for sleep apnea however has not used it in many months. He got his morning medications today however did not get his evening medications. He wishes to be full code. Discharge Plan Discharge Items Patient Disposition: Home - Self-Care Reason For Visit: Visual disturbance Discharge Diagnosis: 1. right occipital lobe stroke leading to visual disturbance 2. prior right sided cerebellar stroke as teenager 3. diabetes 4. high blood pressure 5. high cholesterol 6. incidental note of thyroid nodules on CT neck - outpatient follow-up with your family doctor needed 7. patent foramen ovale ("PFO") seen on echocardiogram 8. history of migraines Activity: As commented below Activity Comment: light activities only; nothing strenuous for 7-10 days Sexual Activity: Wait until after follow-up appointment Exercise/Sports: Wait until after follow-up appointment Driving/Machine Use: NO DRIVING unless cleared by the eye doctor Non-emergency contact: Primary Care Provider, Specialist and Neurologist Call non-emergency contact if: you have any medication questions and your symptoms worsen Follow-up/Referrals: Peng Day MD [Physician] - (Dr Day or any of his partners at [facility] - 3-4 weeks ) Christos De Leon MD [Physician] - (follow-up in 3-4 weeks with [facility] to discuss PFO) Jose Maria Vanessa DO [Primary Care Provider] - (within 5 days ) Hudson Mederos MD [Outside Practitioners] - (you will need to be seen by ophthalmology within 1-2 weeks for full eye exam including visual field testing; Dr Mederos is an rolfer with [facility] ) Diet: Carb Consistent or DM2 and Heart Healthy Addtl Attending Provider Instructions: Mr Villalta, You were hospitalized due to having visual disturbance for several days. We discovered that you had suffered a stroke in the right occipital lobe of the brain. The occipital lobe is the visual center of the brain. Since the stroke was on the right side of the brain this will lead to loss of seeing a portion of your left visual field. The culprit for the stroke was a blocked/occluded blood vessel in the back of the brain called the "posterior cerebral artery." This vessel appeared completely blocked on your CT scans. In addition to your MRI of the brain, other testing obtained while here included CT scans of the blood vessels of the neck, echocardiogram, blood work, heart monitoring, etc. Your MRI brain showed your old stroke in the right cerebellum (balance center) from your youth. We also discovered on your echocardiogram that you have something called a "PFO." This is a small hole in the upper portion of the heart. (see handout) About 20% of the population has this. In the majority of cases a PFO does not contribute or cause strokes. We do not believe that your occipital lobe stroke was caused by the PFO. Finally, we incidentally saw small growths on your thyroid gland called "thyroid nodules." Your family doctor will likely obtain a thyroid ultrasound in the future to get a better look at these nodules. There is noting to do for them in the meantime. Recommendations - 1. NO DRIVING unless cleared by the eye doctor (ophthalmology). 2. TAKE clopidogrel 75mg once daily for stroke prevention. Take the clopidogrel in addition to your baby aspirin 81mg daily. 3. TAKE atorvastatin 40mg once daily for cholesterol. 4. Blood pressure medicine - * STOP your hydrochlorothiazide * REDUCE the dose of your lisinopril to 20mg (1/2 tablet) each morning * REDUCE the dose of your amlodipine to 5mg (1/2 tablet) each morning * check your blood pressures twice daily, keep a log of these values, and show them to your family doctor for his review 5. INCREASE your lantus insulin to 30 units each morning. Please note that your hemoglobin a1c was 9.5%. 6. OK to resume your Trulicity anytime in the next couple of days. 7. OK to take tylenol [id number] as needed for headache. Would avoid motrin/ibuprofen/naprosyn/aleve. Follow-up - see separate section; we will help you obtain some of these appointments AGAIN NO DRIVING A CAR OR OPERATING HEAVY MACHINERY It was our pleasure to care for you! -Dr Osorio Addtl Senior Operations Analyst Provider Instructions: Risk Factors for Stroke: You can reduce your chances of stroke by working with your medical provider to adopt a healthy lifestyle. Some specific ways to lower your chance of stroke are: * If you are a smoker, now is the time to stop smoking cigarettes * If you are diabetic, improve the control of your blood sugars * Avoid excessive amounts of alcohol * Control high blood pressure * Lose weight if you are overweight * Be sure to lead an active lifestyle * Eat a healthy diet low in salt, cholesterol and fat You should know about other risk factors for stroke that you are unable to control. These include: * Age 55 years or older * Male gender * Certain racial groups: , or / * Family History of Stroke, Mini stroke or Heart Attack * Sickle Cell Disease Who to Call and When: Medical Emergencies: Call 911 immediately if you experience any of the following warning signs and symptoms of Stroke: * Sudden numbness or weakness of the face, arm or leg, especially on one side of the body * Sudden confusion, trouble speaking or understanding * Sudden trouble seeing in one or both eyes * Sudden trouble walking, dizziness, loss of balance or coordination * Sudden severe headache with no cause * In addition, seek medical attention if you are having chest pain or shortness of breath Do not delay calling 911 if you experience any warning signs or symptoms of a stroke. Delay in seeking medical attention may affect what treatments can be given to you. . Pending Studies at Discharge: Yes (blood tests for clotting disorders that can increase the risk of stroke ) Stand-Alone Forms: My [facility] [employer], Smoking Cessation Medications and DC Order Prescriptions: New atorvastatin 40 mg Tablet 40 mg PO QAM Qty: 30 2RF clopidogrel 75 mg Tablet 75 mg PO QAM Qty: 30 2RF Continued (DME) CPAP Machine Misc See Rx Instructions .ROUTE .MEDSUPPLY Qty: 1 0RF Rx Instructions: AUTO CPAP 5-15CM WATER PRESSURE WITH HEATED HUMIDITY AND SUPPLIES length of need: 99 months DX: G47.33 tamsulosin 0.4 mg capsule 0.8 mg PO HS Qty: 180 1RF (DME) lancets [Accu-Chek Softclix Lancets] Misc See Rx Instructions .Route Qty: 100 2RF Rx Instructions: test once daily (DME) pen needle, diabetic [Comfort EZ Pen [facility]] 31 gauge x 3/16" needle See Rx Instructions .Route Qty: 100 5RF Rx Instructions: As directed once daily multivitamin [Multiple Vitamins] tablet 1 tab PO QAM magnesium citrate 100 mg tablet 200 mg PO DAILY PRN (Reason: Constipation) (DME) OneTouch Verio test strips Strip See Rx Instructions .Route Qty: 100 8RF Rx Instructions: test 2 times daily amitriptyline 25 mg tablet 25 mg PO .qhs Trulicity 4.5 mg/0.5 mL pen injector 4.5 mg subcut .once weekly Qty: 2 5RF famotidine 20 mg tablet 20 mg PO DAILY aspirin 81 mg tablet,delayed release (DR/EC) 81 mg PO QAM Changed lisinopril 40 mg tablet 20 mg PO QAM Qty: 90 3RF amlodipine 10 mg tablet 5 mg PO QAM Qty: 90 3RF insulin glargine [Lantus Solostar U-100 Insulin] 100 unit/mL (3 mL) insulin pen 30 unit SQ HS Qty: 15 5RF Discontinued hydrochlorothiazide 12.5 mg tablet 12.5 mg PO DAILY Qty: 90 3RF Discharge Orders: Discharge Order (Routine); Ordered 07/04/24 Ordered By: Augustine Acevedo/Other Patient Handouts: Patent Foramen [place], What Is Ischemic Stroke? Admission Data Admit Date/Time: 07/03/24 20:35 Attending Provider: Augustine Osorio Admit Provider: Sam Gleason Primary Care Provider: Jose Maria Vanessa Other Providers: Sam Gleason Hospital Stay Data Consultations 07/03/24 20:52 ED Decision to Admit Stat Diagnostic Imagining Performed 07/03/24 18:03 CT angio head wo/w Stat CT angio neck with con Stat 07/03/24 20:17 MRI Brain [MR brain wo con] Stat Pending Results Patient Have Any Pending Studies at Discharge: Yes (blood tests for clotting disorders that can increase the risk of stroke ) Discharge Instructions Given to Patient (Per Discharging Provider) Mr Villalta, Jayjay were hospitalized due to having visual disturbance for several days. We discovered that you had suffered a stroke in the right occipital lobe of the brain. The occipital lobe is the visual center of the brain. Since the stroke was on the right side of the brain this will lead to loss of seeing a portion of your left visual field. The culprit for the stroke was a blocked/occluded blood vessel in the back of the brain called the "posterior cerebral artery." This vessel appeared completely blocked on your CT scans. In addition to your MRI of the brain, other testing obtained while here included CT scans of the blood vessels of the neck, echocardiogram, blood work, heart monitoring, etc. Your MRI brain showed your old stroke in the right cerebellum (balance center) from your youth. We also discovered on your echocardiogram that you have something called a "PFO." This is a small hole in the upper portion of the heart. (see handout) About 20% of the population has this. In the majority of cases a PFO does not contribute or cause strokes. We do not believe that your occipital lobe stroke was caused by the PFO. Finally, we incidentally saw small growths on your thyroid gland called "thyroid nodules." Your family doctor will likely obtain a thyroid ultrasound in the future to get a better look at these nodules. There is noting to do for them in the meantime. Recommendations - 1. NO DRIVING unless cleared by the eye doctor (ophthalmology). 2. TAKE clopidogrel 75mg once daily for stroke prevention. Take the clopidogrel in addition to your baby aspirin 81mg daily. 3. TAKE atorvastatin 40mg once daily for cholesterol. 4. Blood pressure medicine - * STOP your hydrochlorothiazide * REDUCE the dose of your lisinopril to 20mg (1/2 tablet) each morning * REDUCE the dose of your amlodipine to 5mg (1/2 tablet) each morning * check your blood pressures twice daily, keep a log of these values, and show them to your family doctor for his review 5. INCREASE your lantus insulin to 30 units each morning. Please note that your hemoglobin a1c was 9.5%. 6. OK to resume your Trulicity anytime in the next couple of days. 7. OK to take tylenol [id number] as needed for headache. Would avoid motrin/ibuprofen/naprosyn/aleve. Follow-up - see separate section; we will help you obtain some of these appointments AGAIN NO DRIVING A CAR OR OPERATING HEAVY MACHINERY It was our pleasure to care for you! -Dr Osorio Coding Diagnoses CVA (cerebral vascular accident) I63.9 Visual disturbance H53.9 T2DM (type 2 diabetes mellitus) E11.9 Thyroid nodule E04.1
[2024-07-05] MEDS ORDERED: CLOPIDOGREL BISULFATE 75 MG TAB PO SCH (09:00)
--- NOTE | 2024-07-06 10:37 | Pharmacy Report ---
Pharmacist Stroke Counseling - Date of Service July 06, 2024 - Scope: Pharmacy has been consulted to provide medication discharge counseling for this patient admitted with transient ischemic attack as per the Pharmacist Discharge Counseling for Stroke Patients Protocol. - Medications on Discharge: Home Medications Medication Instructions Recorded Confirmed multivitamin (Multiple Vitamins 1 tab PO QAM 01/28/19 07/03/24 tablet) magnesium citrate 100 mg tablet 200 mg PO DAILY PRN Constipation 08/01/20 07/03/24 aspirin 81 mg tablet,delayed 81 mg PO QAM 07/03/21 07/03/24 release amitriptyline 25 mg tablet 25 mg PO .qhs 01/09/24 07/03/24 famotidine 20 mg tablet 20 mg PO DAILY 06/04/24 07/03/24 New Rx's Medication Instructions Recorded CPAP Machine #1 ea 05/04/20 blood sugar diagnostic (OneTouch #100 ea 02/21/23 Verio test strips) dulaglutide 4.5 mg/0.5 mL 4.5 mg (0.5 mL) subcut .once 01/09/24 subcutaneous pen injector weekly #2 mL tamsulosin 0.4 mg capsule 0.8 mg (2 x 0.4 mg) PO HS #180 caps 03/25/24 lancets (Accu-Chek Softclix #100 ea 04/24/24 Lancets) pen needle, diabetic 31 gauge x #100 ea 06/04/24 3/16" (Comfort EZ Pen [place]) amlodipine 10 mg tablet 5 mg (1/2 x 10 mg) PO QAM #90 tabs 07/04/24 atorvastatin 40 mg tablet 40 mg PO QAM #30 tabs 07/04/24 clopidogrel 75 mg tablet 75 mg PO QAM #30 tabs 07/04/24 insulin glargine 100 unit/mL (3 30 unit (0.3 mL) subcut HS #15 mL 07/04/24 mL) subcutaneous pen (Lantus Solostar U-100 Insulin) lisinopril 40 mg tablet 20 mg (1/2 x 40 mg) PO QAM #90 tabs 07/04/24 - Action: The above medications, specifically ones for stroke treatment/prophylaxis, have been reviewed in detail with the patient and/or patient member service representative(s) prior to discharge. This includes indication, common adverse reactions, drug interactions, and medication administration. Medication counseling has been employed using the teach-back method to ensure understanding. - Outcome: The patient and/or patient member service representative(s) have demonstrated understanding of the medications. Additional comments: - counseled patient on new medications for TIA. demonstrated good understanding of DAPT and Statin - will roll picker new meds today and start them. follow up appointment is not scheduled yet but planning on doing so today. Counseled on importance of this as PCP will need to determine which antiplatelet to take after first 3 week. - counseled on addition of SGLT2i or GLP1-RA with proven CVD benefit to regimen Thank you for allowing pharmacy to be involved in the care of this patient. Please call [phone] with any additional questions
== END 2024-07-04 17:39 | disposition home or self-care (01) | DRG 66 ==
LOC: ED 16:45 → 2N 20:35 → SUATTDRO 20:35 → 2N 22:23